=== PATIENT | female | born 1965 | race Caucasian/White ===

== ENCOUNTER → 2023-11-24 13:46 | Outpatient (REF) | payer OTHER, SELFPAY | LOC: HWWDC 13:46 | PROVIDERS: ATTENDING PHYSICIAN Advanced Practice Midwife; FAMILY PHYSICIAN Physician Assistant Medical | DX: Z12.31 Encounter for screening mammogram for malignant neoplasm of breast (principal) | CPT/HCPCS: 77063; 77067 ==